=== PATIENT | female | born 1980 | race African-American/Black ===

== ENCOUNTER 2016-09-22 12:51 | Emergency (ER) | payer MEDICAID ==
[2016-09-22 14:03] VITALS: BP 106/60
== END 2016-09-22 13:53 | disposition left against medical advice (07) ==
LOC: MW.ED 12:51
DX: M54.9 Dorsalgia, unspecified (principal); Z53.21 Procedure and treatment not carried out due to patient leaving prior to being seen by health care provider
CPT/HCPCS: 99282

== ENCOUNTER 2017-05-08 08:20 | Emergency (ER) | payer MEDICAID ==
--- NOTE | 2017-05-08 08:44 | EDM.PDOC ---
ED HPI GENERAL MEDICAL PROBLEM - General Chief Complaint: Upper Extremity Injury/Pain Stated Complaint: L ARM PAIN Time Seen by Provider: 05/08/17 08:38 - History of Present Illness INITIAL COMMENTS - FREE TEXT/NARRATIVE: HISTORY AND PHYSICAL: History of present illness: The patient is a 36-year-old female who presents with complaints of left elbow pain after she slipped and fell on the ice landing on the elbow about 2-1/2 days ago. She has been using ice as well as the pain medication she has at home , she had a recent knee surgery and she is using the pain medication. She is concerned because she is feeling tingling in her hands but she says she has not been using the arm or moving it very much because she is scared that something might be injured. She has no weakness in the hand or arm. There Is no proximal shoulder or distal wrist and hand pain. With the fall the patient did not hit her head pass out or black out and has no head neck or back pain Review of systems: As per history of present illness and below otherwise all systems reviewed and negative. Past medical history: As per history of present illness and as reviewed below otherwise noncontributory. Surgical history: As per history of present illness and as reviewed below otherwise noncontributory. Social history: No reported history of drug or alcohol abuse. Family history: As per history of present illness and as reviewed below otherwise noncontributory. Physical exam: HEENT: Atraumatic, normocephalic, negative for conjunctival pallor or scleral icterus, mucous membranes moist, throat clear, neck supple, nontender, trachea midline. No midline step-offs tenderness defects of the cervical spine Lungs: Clear to auscultation, breath sounds equal bilaterally, chest nontender. Heart: S1S2, regular, rate and rhythm no overt murmurs Abdomen: Soft, nondistended, nontender. NABS Pelvis: Stable nontender. Genitourinary: Deferred. Rectal: Deferred. Extremities: Atraumatic with full range of motion of all extremities including the left upper extremity. There is no soft tissue swelling around the elbow but there is tenderness to palpation. There is no ecchymosis or erythema and no joint fluid. Distally and proximally there is no bony defects deformities or tenderness. 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 Neurovascular unremarkable. Neuro: Awake, alert, oriented. Cranial nerves II through XII unremarkable. Cerebellum unremarkable. Motor and sensory unremarkable throughout. Exam nonfocal. Back: There are no midline step-offs tenderness defects of the thoracic or lumbar spine Diagnostics: X-ray left elbow Therapeutics: The patient took her pain medications at home Impression: Elbow contusion, left Definitive disposition and diagnosis as appropriate pending reevaluation and review of above. left arm Pain Score (Numeric/FACES): 10 - Related Data Allergies Allergy/AdvReac Type Severity Reaction Status Date / Time ibuprofen Allergy kidney Verified 05/08/17 08:32 failure paroxetine HCl [From Paxil] Allergy Hives Verified 05/08/17 08:32 Penicillins Allergy kidney Verified 05/08/17 08:32 failure Home Meds: Home Meds oxyCODONE HCl/Acetaminophen [Percocet 5-325 mg Tablet] 5 mg PO ASDIRECTED PRN [History] Benzalkonium Chloride [Remedy] 05/08/17 [History] DULoxetine HCl [Duloxetine HCl] 05/08/17 [History] Past Medical History HEENT History: Other HEENT History: wears glasses Cardiovascular History: Reports: None Respiratory History: Reports: None Gastrointestinal History: Reports: None Genitourinary History: Reports: Acute Renal Failure Other Genitourinary History: kidney failure from Penicillin allergy, [place]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: Musculoskeletal History: Reports: Other (See Below) Other Musculoskeletal History: Chronic Pain Neurological History: Reports: Migraines Other Neuro History: migraines since age 5 Psychiatric History: Reports: Anxiety, Depression Endocrine/Metabolic History: Reports: None Hematologic History: Reports: None Immunologic History: Reports: None Oncologic (Cancer) History: Reports: Ovarian Other Oncologic History: right ovary removed, 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 Dermatologic History: Reports: None - Past Surgical History Head Surgeries/Procedures: Reports: None HEENT Surgical History: Reports: Oral Surgery, Tonsillectomy Cardiovascular Surgical History: Reports: None Respiratory Surgical History: Reports: None GI Surgical History: Reports: None Female Surgical History: Reports: Section, Salpingo-Oophorectomy Endocrine Surgical History: Reports: None Neurological Surgical History: Reports: None Musculoskeletal Surgical History: Reports: Arthroscopic Knee Oncologic Surgical History: Reports: None Dermatological Surgical History: Reports: None Social & Family History - Family History Family Medical History: Noncontributory - Tobacco Use Smoking Status *Q: Never Smoker Second Hand Smoke Exposure: Yes - Caffeine Use Caffeine Use: Reports: Energy Drinks, Soda, Tea - Alcohol Use Days Per Week of Alcohol Use: 0 - Recreational Drug Use Recreational Drug Use: Yes Drug Use in Last 12 Months: Yes Recreational Drug Type: Reports: Marijuana/Hashish Recreational Drug Use Frequency: Daily Recreational Drug Last Use: 2016 Review of Systems - Review of Systems Review Of Systems: ROS reveals no pertinent complaints other than HPI. ED EXAM, GENERAL - Physical Exam Exam: See Below (See dictation) Course - Vital Signs Last Recorded V/S: Last Vital Signs Temp 36.3 C 05/08/17 08:34 Pulse 69 05/08/17 08:34 Resp 18 05/08/17 08:34 BP 123/56 L 05/08/17 08:34 Pulse Ox 97 05/08/17 08:34 Departure - Departure Time of Disposition: 09:21 Disposition: Home, Self-Care 01 Condition: Good Clinical Impression: Left elbow contusion Qualifiers: Encounter type: initial encounter Qualified Code(s): S50.02XA - Contusion of left elbow, initial encounter - Discharge Information Referrals: Herb Lawson MD [Primary Care Provider] - Forms: ED Department Discharge Additional Instructions: The following information is given to patients seen in the emergency department who are being discharged to home. This information is to outline your options for follow-up care. We provide all patients seen in our emergency department with a follow-up referral. The need for follow-up, as well as the timing and circumstances, are variable depending upon the specifics of your emergency department visit. If you don't have a primary care physician on staff, we will provide you with a referral. We always advise you to contact your personal physician following an emergency department visit to inform them of the circumstance of the visit and for follow-up with them and/or the need for any referrals to a consulting specialist. The emergency department will also refer you to a specialist when appropriate. This referral assures that you have the opportunity for followup care with a specialist. All of these measure are taken in an effort to provide you with optimal care, which includes your followup. Under all circumstances we always encourage you to contact your private physician who remains a resource for coordinating your care. When calling for followup care, please make the office aware that this follow-up is from your recent emergency room visit. If for any reason you are refused follow-up, please contact the [facility] emergency department at and ask to speak to the emergency department charge nurse. [facility] Primary care- Internal Medicine and Family [facility] [address] [place] [address] [id number] [facility] Specialty Care--Orthopedic clinic Professional Building [address] [place] [id number] Ice and elevate the area and use pain medications you have at home. Please call and follow-up with one of our clinic providers, the orthopedics clinic number is as above, for further care and evaluation. Return to ER as needed and as discussed
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
[2017-05-08 09:35] VITALS: BP 114/59
== END 2017-05-08 09:32 | disposition home or self-care (01) ==
LOC: MW.ED 08:20
DX: S50.02XA Contusion of left elbow, initial encounter (principal); W00.0XXA Fall on same level due to ice and snow, initial encounter
CPT/HCPCS: 73080-26-LT; 73080-LT; 99283; 99284

== ENCOUNTER 2017-05-29 09:33 | Emergency (ER) | payer OTHER, MEDICAID ==
--- NOTE | 2017-05-29 11:14 | CR ---
EXAMINATION: Right hand HISTORY: Injury COMPARISON: None TECHNIQUE: 3 views FINDINGS/IMPRESSION: There is no acute osseous abnormality, dislocation, or fracture. Bone mineraliza tion and joint spaces appear normal. The radiocarpal alignment is preserved.
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
[2017-05-29 15:04] VITALS: BP 132/51
== END 2017-05-29 12:09 | disposition home or self-care (01) ==
LOC: MW.ED 09:33
DX: S60.021A Contusion of right index finger without damage to nail, initial encounter (principal); Z79.899 Other long term (current) drug therapy; Z88.0 Allergy status to penicillin; Z88.6 Allergy status to analgesic agent; Z88.8 Allergy status to other drugs, medicaments and biological substances; V89.2XXA Person injured in unspecified motor-vehicle accident, traffic, initial encounter; Y92.410 Unspecified street and highway as the place of occurrence of the external cause
CPT/HCPCS: 73140-26-F6; 73140-F6; 99283; 99284

== ENCOUNTER → 2017-07-11 | Day surgery (SDC) | payer MEDICAID ==
[~2017-07-11] MED LIST: Acetaminophen/HYDROcodone 325-7.5 MG Tab PO ONE; Acetaminophen/HYDROcodone 325-7.5 MG Tab PO PRN; Clindamycin Phosphate in D5W 600 MG in Premix Bag 1 BAG IV ONE; Iopamidol 408 MG/ML 50 ML SDV IV ONE; Lidocaine 2% 5 ML SDV EPIDUR ONE; Lidocaine 2% 5 ML SDV INJECT ONE; Propofol 200 MG/20 ML SDV ONE
--- NOTE | 2017-07-11 15:07 | OR ---
SURGEON: Layne Guzmán D.O. DATE OF PROCEDURE: 07/11/2017 OR STAFF PRESENT: 1. David Castro RN. 2. Edwige Araujo RN. 3. Briana Connolly RT. WOUND CLASSIFICATION: I. PREOPERATIVE DIAGNOSES: 1. Complex regional pain syndrome. 2. Left lower extremity chronic pain syndrome. POSTOPERATIVE DIAGNOSES: 1. Complex regional pain syndrome. 2. Left lower extremity chronic pain syndrome. PROCEDURES PERFORMED: 1. Left 50 cm, 16 contact [employer] Infineon 16 trial lead placed on the left to the top of T9. 2. Fluoroscopic guidance for needle placement. 3. Local with oral Valium for sedation/monitored anesthesia care. ANESTHESIA: Local with sedation. SCREENING QUESTIONS: The patient answered no to all the following questions: 1. Are you allergic to iodine, Betadine, or latex? 2. Do you have a bleeding disorder? 3. Are you on anti-inflammatories or blood thinners? 4. Are you ? 5. Do you have any current local or systemic infections? 6. Do you have any joint replacements, heart valve replacements or a pacemaker? DESCRIPTION OF PROCEDURE: The patient had the procedure thoroughly explained including risks, benefits, and alternatives. Consent was signed in my clinic indicating understanding and willingness to proceed. The patient presented to [facility] and was escorted to the dressing room to disrobe and change into a hospital gown. Preoperative history and screening were performed by the nurse. Vital signs were taken and stable. The patient was set up with an IV prior to the procedure. The patient was brought back to the procedure room and placed in the prone position on the procedure room table. A pillow was placed under the abdomen in order to flatten the lumbar lordosis. The patient was positioned comfortably and there was no evidence of infection at the sites of needle insertion. The back was prepped with ChloraPrep and sterilely draped. All personnel in the operating room were dressed in appropriate attire including surgical scrubs, head and shoe covers. This was to ensure sterility while in the treatment room. During the time fluoroscopy was in use, all personnel in the operating room wore lead garcia with thyroid collars. Sterile technique was used during the procedure. Prior to the start of the procedure, prophylactic antibiotic was administered IV. Skeletal landmarks were identified under fluoroscopic guidance. At all insertion sites, the skin and soft tissues were anesthetized with 2% lidocaine preservative-free with a sterile 27-gauge 1-1/2 inch needle. The epidural space was entered with a 14-gauge Tuohy epidural needle with loss-of- resistance to wire technique. Under live fluoroscopic guidance, the 8 standard contact lead electrodes were advanced approximately to the midline at the middle of the T7 vertebral body on the left and then the right. No CSF, no heme, no paresthesia were noted. Testing by the neuromodulation clinical specialist revealed appropriate coverage of the patient's normal areas of pain. The leads were then secured to the skin with occlusive dressing. No complications were noted throughout the procedure and vital signs were stable. Then the patient was brought to the recovery room in stable condition. At that time, the patient had additional stimulation patterns programmed which covered all the normal areas of pain. The patient tolerated the procedure well and was released home with postoperative instructions for followup in the clinic. The patient will fill out a pain diary throughout the week of the spinal cord stimulator trial. Additionally, prior to discharge, postoperative instructions were given to the patient and the patient voiced understanding, including understanding of those signs and symptoms that would require emergency care. PREOPERATIVE PAIN: 10/10. FOLLOWUP: Follow up in the Pain Clinic for reprogramming in the morning. EMA / JOSE /[id number]
--- NOTE | 2017-07-11 16:11 | CR ---
EXAMINATION: Thoracic spine HISTORY: Spinal cord stimulator trial COMPARISON: None TECHNIQUE: 3 views FINDINGS/IMPRESSION: Operative control films demonstrate a single spinal cord stimulator lead project ing over the lower thoracic spine from approximately the lower endplate of T8 to T11.
== END ==
LOC: MW.CHPM 11:00 → MW.SDS 11:31
PROVIDERS: ATTEND Anesthesiology
DX: G90.522 Complex regional pain syndrome I of left lower limb (principal); G89.4 Chronic pain syndrome; F41.9 Anxiety disorder, unspecified; F32.9 Major depressive disorder, single episode, unspecified; Z79.891 Long term (current) use of opiate analgesic; Z88.0 Allergy status to penicillin; Z88.8 Allergy status to other drugs, medicaments and biological substances; Z79.899 Other long term (current) drug therapy; F17.200 Nicotine dependence, unspecified, uncomplicated
CPT/HCPCS: 63650; 76000; 81025; A9270; Q9966; J2704

== ENCOUNTER 2017-09-07 22:05 | Emergency (ER) | payer MEDICAID ==
[2017-09-07 22:30] VITALS: BP 119/79
== END 2017-09-07 22:10 | disposition left against medical advice (07) ==
LOC: MW.ED 22:05
DX: Z53.21 Procedure and treatment not carried out due to patient leaving prior to being seen by health care provider (principal)
CPT/HCPCS: 99283

== ENCOUNTER 2017-09-27 19:22 | Emergency (ER) | payer MEDICAID ==
[2017-09-27] MEDS ORDERED: Benzocaine 20% Topical Spray UD MUCMEM ONE (19:54)
[2017-09-27] MEDS ORDERED: LORazepam 1 MG Tab PO ONE (19:54)
[2017-09-27] MEDS ORDERED: Lidocaine 2% Viscous Solution 15 ML Cup PO ONE (19:54)
--- NOTE | 2017-09-27 19:58 | EDM.PDOC ---
ED HPI GENERAL MEDICAL PROBLEM - General Chief Complaint: ENT Problem Stated Complaint: FACE HURTS Time Seen by Provider: 09/27/17 19:48 - History of Present Illness INITIAL COMMENTS - FREE TEXT/NARRATIVE: HISTORY AND PHYSICAL: History of present illness: The patient is a 36-year-old female who had recent injury and surgery on her left knee and has pain medication left over from that, Percocet, and presents complaining of pain to her right lower molar area and a cavity in that region. She saying that her whole face on the right side is hurting including her ear and she has taken one of her Percocet at 1 PM and is not working. She is very anxious about this and no local dentist had an appointment for her so she made an appointment in [place] for next Monday. She is concerned about pain. She has no headache no fevers no chills no sore throat and no other systemic issues. Review of systems: As per history of present illness and below otherwise all systems reviewed and negative. Past medical history: As per history of present illness and as reviewed below otherwise noncontributory. Surgical history: As per history of present illness and as reviewed below otherwise noncontributory. Social history: No reported history of drug or alcohol abuse. Family history: As per history of present illness and as reviewed below otherwise noncontributory. Physical exam: General: Well-developed thin female who is nontoxic and very anxious on my evaluation. There is no gross facial swelling appreciated HEENT: Atraumatic, normocephalic, pupils reactive, negative for conjunctival pallor or scleral icterus, mucous membranes moist, throat clear, neck supple, nontender, trachea midline. TM on the right is slightly dull but within normal limits. At tooth #31 there is a cavity seen without any gum swelling or fluctuance and there is tenderness in this region. Lungs: Clear to auscultation, breath sounds equal bilaterally, chest nontender. Heart: S1S2, regular rate and rhythm no overt murmurs Abdomen: Soft, nondistended, nontender. NABS Pelvis: Deferred Genitourinary: Deferred. Rectal: Deferred. Extremities: Atraumatic, negative for cords or calf pain. Neurovascular unremarkable. Neuro: Awake, alert, oriented. Cranial nerves II through XII unremarkable. Cerebellum unremarkable. Motor and sensory unremarkable throughout. Exam nonfocal. Diagnostics: [] Therapeutics: Dental balls Ativan by mouth Impression: Dental pain/dental caries, anxiety reaction to pain Definitive disposition and diagnosis as appropriate pending reevaluation and review of above. dental pain Pain Score (Numeric/FACES): 10 - Related Data Allergies Allergy/AdvReac Type Severity Reaction Status Date / Time ibuprofen Allergy kidney Verified 09/27/17 19:44 failure paroxetine HCl [From Paxil] Allergy Hives Verified 09/27/17 19:44 Penicillins Allergy kidney Verified 09/27/17 19:44 failure Home Meds: Home Meds oxyCODONE HCl/Acetaminophen [Percocet 5-325 mg Tablet] 1 tab PO ASDIRECTED PRN 05/25/16 [History] Benzalkonium Chloride [Remedy] 1 spray KYLE ASDIRECTED 05/08/17 [History] Carisoprodol [Soma] 350 mg PO BID 05/29/17 [History] Pregabalin [Lyrica] 300 mg PO DAILY 05/29/17 [History] Past Medical History HEENT History: Reports: None Other HEENT History: wears glasses Cardiovascular History: Reports: None Respiratory History: Reports: None Gastrointestinal History: Reports: None Genitourinary History: Reports: Acute Renal Failure Other Genitourinary History: kidney failure from Penicillin allergy [employer] History: Reports: Musculoskeletal History: Reports: Fracture, Other (See Below) Other Musculoskeletal History: chronic pain left knee, hx of fx right leg and fingers Neurological History: Reports: Migraines Other Neuro History: migraines since age 5 Psychiatric History: Reports: Anxiety, Depression Endocrine/Metabolic History: Reports: None Hematologic History: Reports: None Immunologic History: Reports: None Oncologic (Cancer) History: Reports: Ovarian Other Oncologic History: right ovary removed, 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 Dermatologic History: Reports: None - Infectious Disease History Infectious Disease History: Reports: None - Past Surgical History Head Surgeries/Procedures: Reports: None HEENT Surgical History: Reports: Oral Surgery, Tonsillectomy Cardiovascular Surgical History: Reports: None Respiratory Surgical History: Reports: None GI Surgical History: Reports: None Female Surgical History: Reports: Section, Salpingo-Oophorectomy Endocrine Surgical History: Reports: None Neurological Surgical History: Reports: None Musculoskeletal Surgical History: Reports: Arthroscopic Knee Oncologic Surgical History: Reports: None Dermatological Surgical History: Reports: None Social & Family History - Family History Family Medical History: Noncontributory - Caffeine Use Caffeine Use: Reports: Tea - Recreational Drug Use Recreational Drug Use: Yes Drug Use in Last 12 Months: Yes Recreational Drug Type: Reports: Marijuana/Hashish ED ROS GENERAL - Review of Systems Review Of Systems: ROS reveals no pertinent complaints other than HPI. ED EXAM, GENERAL - Physical Exam Exam: See Below (See dictation) Course - Vital Signs Last Recorded V/S: Last Vital Signs Temp 36.6 C 09/27/17 19:44 Pulse 81 09/27/17 19:44 Resp 18 09/27/17 19:44 BP 139/85 09/27/17 19:44 Pulse Ox 98 09/27/17 19:44 - Orders/Labs/Meds Meds: Medications Discontinued Medications Generic Name Dose Route Start Last Admin Trade Name Darío PRN Reason Stop Dose Admin Benzocaine 2 each 09/27/17 19:54 Hurricaine One 20% MUCMEM 09/27/17 19:55 ONETIME ONE Lidocaine HCl 15 ml 09/27/17 19:54 Xylocaine 2% Viscous PO 09/27/17 19:55 ONETIME ONE Lorazepam 1 mg 09/27/17 19:54 Ativan PO 09/27/17 19:55 ONETIME ONE Departure - Departure Time of Disposition: 19:57 Disposition: Home, Self-Care 01 Condition: Good Clinical Impression: Pain due to dental caries - Discharge Information Referrals: PCP,None [Primary Care Provider] - Additional Instructions: The following information is given to patients seen in the emergency department who are being discharged to home. This information is to outline your options for follow-up care. We provide all patients seen in our emergency department with a follow-up referral. The need for follow-up, as well as the timing and circumstances, are variable depending upon the specifics of your emergency department visit. If you don't have a primary care physician on staff, we will provide you with a referral. We always advise you to contact your personal physician following an emergency department visit to inform them of the circumstance of the visit and for follow-up with them and/or the need for any referrals to a consulting specialist. The emergency department will also refer you to a specialist when appropriate. This referral assures that you have the opportunity for followup care with a specialist. All of these measure are taken in an effort to provide you with optimal care, which includes your followup. Under all circumstances we always encourage you to contact your private physician who remains a resource for coordinating your care. When calling for followup care, please make the office aware that this follow-up is from your recent emergency room visit. If for any reason you are refused follow-up, please contact the [facility] emergency department at and ask to speak to the emergency department charge nurse. [facility] Primary care- Internal Medicine and Family [address] [address] Use ice to face for any swelling and continue your pain medication as needed. Please use dental balls as prescribed and needed and take antibiotics until they are finished. You may also add any [id number] medications as you choose. Please keep your appointment next week with the dentist and return to ER as needed and as discussed
[2017-09-27 20:14] VITALS: BP 122/74
== END 2017-09-27 20:25 | disposition home or self-care (01) ==
LOC: MW.ED 19:22
DX: K02.9 Dental caries, unspecified (principal); F41.1 Generalized anxiety disorder; F32.9 Major depressive disorder, single episode, unspecified; Z88.6 Allergy status to analgesic agent; Z88.8 Allergy status to other drugs, medicaments and biological substances; Z88.0 Allergy status to penicillin; Z79.899 Other long term (current) drug therapy
CPT/HCPCS: 99282; A9270